=== PATIENT | male | born 1960 | race Two or more races ===

== ENCOUNTER 2017-07-30 14:14 | Emergency (ER) | payer SELFPAY ==
[2017-07-30 14:24] VITALS: BP 140/70; BMI 27.4
--- NOTE | 2017-07-30 14:42 | DR.GENAD ---
HPI - PCP Primary Care Physician: NFD - HPI Comment HPI Comment: PAIN INTERMITTENT AND WORSE TODAY. NO FEVER OR DYSURIA. HAD NORMAL BM TODAY. - Complaint/Symptoms Chief Complaint Doctors Comments: LOWER ABDOMINAL PAIN, LT SCROTAL AND TESTICULAR PAIN TIMES 4 DAYS. Chief Complaint:: "This past Wednesday I was lifting something heavy and I felt something was cutting my from my lower abdomen all the way to my testicles. If I lean forward it hurts way worse. If I get up fast it hurts really bad as well. " Via crinkling machine operator - Ifeanyi Mcallister - Nurses notes reviewed Nurses Notes Review: Yes - Source History Provided: Patient - Mode of Arrival Mode of Arrival: Ambulatory - Timing Onset of Chief Complaint: 07/26/17 Came on: Suddenly - Duration Duration: Constant Duration: Days - Severity Severity: Moderate PMH - PMH Past Medical History: No Past Surgical History: No - Family History History of Family Medical Conditions: No - Social History Does patient currently use any type of tobacco product: No Have you used tobacco products in the last 12 months: No Type of Tobacco Use: None Does any household member use tobacco: No Alcohol Use: None Do you use any recreational Drugs:: No Lives With: Family Lives Where: Home - infectious screening In the last 2 months have you had wt loss of >10#?: NO Have you had fever, night sweats or hemotysis?: No Have you traveled outside the country in the last 6 months?: No Isolation: Standard ROS - Review of Systems Constitutional: No Symptoms Reported Eyes: No Symptoms Reported ENTM: No Symptoms Reported Respiratoy: No Symptoms Reported Cardiovascular: No Symptoms Reported Gastrointestinal/Abdominal: Abdominal Pain, Nausea, Other (PAIN LEFT TESTICLE) Genitourinary: Other (TENDERNESS LT TESTIS, SCRTUM ENLARGE SLIGHTLY.) Neurological: No Symptoms Reported Musculoskeletal: No Symptoms Reported Integumentary: No Symptoms Reported Hematologic/Lymphatic: No Symptoms Reported Endocrine: No Symptoms Reported All Other Systems: Reviewed and Negative PE - Vital Signs Vitals: Temperature 98.7 F Pulse Rate 72 Respiratory Rate 18 Blood Pressure 140/70 O2 Sat by Pulse Oximetry 99 - General Limitations: No Limitations General Appearance: Alert - Head Head Exam: Normal Inspection - Eyes Eye exam: Normal Appearance - ENT ENT Exam: Normal External Ear Exam External Ear Exam: Normal External Inspection TM/Canal Exam: Bilateral Normal Nose Exam: Normal Nose Exam Mouth Exam: Normal Inspection Throat Exam: Normal Inspection - Neck Neck Exam: Normal Inspection - Chest Chest Inspection: Symmetric Chest Wall Rise - Respiratory Respiratory Exam: Normal Lung Sounds Bilat Respiratory Exam: Bilateral Clear to Auscultation - Cardiovascular Cardiovascular Exam: Regular Rate, Normal Rhythm, Normal Heart Sounds - Abdominal Exam Abdominal Exam: Normal Bowel Sounds, Soft, Tenderness Abdominal Tenderness: RLQ, LLQ, Suprapubic - Extremities Extremities Exam: Normal Inspection - Back Back Exam: Normal Inspection - Neurologic Neurological Exam: Alert, Oriented X3 - Psychiatric Psychiatric Exam: Normal Affect, Normal Mood - Skin Skin Exam: Normal Color MDM - Differential Diagnosis Differential Diagnosis: ABDOMINAL PAIN, TESTICULAR PAIN, INGUINAL HERNIA, KIDNEY STONE, UTI, ORCHIT Course - Treatment Treatment: SEE ORDERS. - Education/Counseling Education/Counseling: Patient, Education Educated On: Diagnosis, Needs for Follow Up ROR - Labs Reviewed Laboratory Results Reviewed?: Yes Result Diagrams: 07/30/17 15:06 07/30/17 15:06 Laboratory: WBC 8.7 X10^3/uL (3.6-10.0) 07/30/17 15:06 RBC 5.02 X10^6/uL (4.7-6.0) 07/30/17 15:06 Hgb 14.4 g/dL (13.5-18.0) 07/30/17 15:06 Hct 41.8 % (42.0-54.0) L 07/30/17 15:06 MCV 83.3 fL (80.0-100.0) 07/30/17 15:06 MCH 28.6 pg (27.0-34.0) 07/30/17 15:06 MCHC 34.4 g/dL (33.0-35.0) 07/30/17 15:06 RDW 14.6 % (11.6-16.5) 07/30/17 15:06 Plt Count 259 X10^3/uL (150.0-450.0) 07/30/17 15:06 MPV 8.3 fL (7.4-11.0) 07/30/17 15:06 Neut % 73.1 % (42.0-75.0) 07/30/17 15:06 Lymph % 20.5 % (21.0-51.0) L 07/30/17 15:06 Collin % 5.6 % (0.0-13.0) 07/30/17 15:06 Eos % 0.5 % (0.9-2.9) L 07/30/17 15:06 Baso % 0.3 % (0.2-1.0) 07/30/17 15:06 Neut # 6.4 x10^3/uL (2.2-4.8) H 07/30/17 15:06 Lymph # 1.8 X10^3/uL (1.3-2.9) 07/30/17 15:06 Collin # 0.5 x10^3/uL (0.3-0.8) 07/30/17 15:06 Eos # 0.0 x10^3/uL (0.0-0.2) 07/30/17 15:06 Baso # 0.0 X10^3/uL (0.0-0.1) 07/30/17 15:06 Absolute Nucleated RBC 0.0 /100WBC 07/30/17 15:06 Sodium 139 mmol/L (136-145) 07/30/17 15:06 Corrected Sodium TNP 07/30/17 15:06 Potassium 3.9 mmol/L (3.5-5.1) 07/30/17 15:06 Chloride 105 mmol/L (98-107) 07/30/17 15:06 Carbon Dioxide 26.2 mmol/L (21-32) 07/30/17 15:06 BUN 18 mg/dL (7-18) 07/30/17 15:06 Creatinine 0.91 mg/dL (0.70-1.30) 07/30/17 15:06 Est GFR (MDRD) Af Amer > 60 (>60) 07/30/17 15:06 Est GFR (MDRD) Non-Af > 60 (>60) 07/30/17 15:06 Glucose 90 mg/dL (65-99) 07/30/17 15:06 Calcium 9.1 mg/dL (8.5-10.1) 07/30/17 15:06 Corrected Calcium TNP 07/30/17 15:06 Total Bilirubin 0.50 mg/dL (0.2-1.0) 07/30/17 15:06 AST 23 Units/L (15-37) 07/30/17 15:06 ALT 36 Units/L (12-78) 07/30/17 15:06 Alkaline Phosphatase 98 Units/L (46-116) 07/30/17 15:06 Total Protein 7.8 g/dL (6.4-8.2) 07/30/17 15:06 Albumin 3.8 g/dL (3.4-5.0) 07/30/17 15:06 Globulin 4.0 g/dL (2.5-4.5) 07/30/17 15:06 Albumin/Globulin Ratio 1.0 Ratio (1.1-2.1) L 07/30/17 15:06 Specimen Type Clean catch urine 07/30/17 15:48 Urine Color Yellow (YELLOW) 07/30/17 15:48 Urine Appearance Hazy (CLEAR) 07/30/17 15:48 Urine pH 5.0 (5.0 - 8.0) 07/30/17 15:48 Ur Specific Holladay 1.025 (1.000-1.030) 07/30/17 15:48 Urine Protein 1+ (NEGATIVE) 07/30/17 15:48 Urine Glucose (UA) Negative (NEGATIVE) 07/30/17 15:48 Urine Ketones 2+ (NEGATIVE) 07/30/17 15:48 Urine Occult Blood Negative (NEGATIVE) 07/30/17 15:48 Urine Nitrite Negative (NEGATIVE) 07/30/17 15:48 Urine Bilirubin Negative (NEGATIVE) 07/30/17 15:48 Urine Urobilinogen Normal (NORMAL) 07/30/17 15:48 Ur Leukocyte Esterase 1+ (NEGATIVE) 07/30/17 15:48 Urine RBC 0-2 /HPF (NEGATIVE) 07/30/17 15:48 Urine WBC 0-2 /HPF (NEGATIVE) 07/30/17 15:48 Ur Squamous Epith Cells Negative /HPF (NEGATIVE) 07/30/17 15:48 Urine Bacteria Trace /HPF (NEGATIVE) 07/30/17 15:48 Urine Mucus Few /HPF (NEGATIVE) 07/30/17 15:48 Ur Culture Indicated? No/not indicated 07/30/17 15:48 - XRAY XRAY Interpreted by: Radiologist XRAY Findings: REPORT DISCUSS WITH PATIENT. - Diagnosis Discharge Problem: Testicular/scrotal pain Abdominal pain Qualifiers: Abdominal location: lower abdomen, unspecified Qualified Code(s): R10.30 - Lower abdominal pain, unspecified - Discharge Plan Disposition: HOME, SELF-CARE Condition: Stable Prescriptions: Cyclobenzaprine HCl [FLEXERIL 10 MG *] 10 mg PO TID PRN #20 tab PRN Reason: Ibuprofen [MOTRIN TAB 600 MG *] 600 mg PO TID PRN #20 tab PRN Reason: Pain/Inflammation - Follow ups/Referrals Follow ups/Referrals: NFD,None [Primary Care Provider] - 3 days OLGA NIETO [STAFF PHYSICIAN] - 3 days - Instructions Instructions: Scrotal Swelling, Abdominal Pain, Adult, [id number] Additional Instructions: RETURN TO ED IF WORSE.
[2017-07-30 15:20] LABS: BASOPHILS % (AUTO) 0.3 % (0.2-1.0); EOSINOPHILS % (AUTO) 0.5 % (0.9-2.9); HEMATOCRIT 41.8 % (42.0-54.0); HEMOGLOBIN 14.4 g/dL (13.5-18.0); LYMPHOCYTES # (AUTO) 1.8 X10^3/uL (1.3-2.9); LYMPHOCYTES % (AUTO) 20.5 % (21.0-51.0); MEAN CORPUSCULAR HEMOGLOBIN 28.6 pg (27.0-34.0); MEAN CORPUSCULAR HGB CONC 34.4 g/dL (33.0-35.0); MEAN CORPUSCULAR VOLUME 83.3 fL (80.0-100.0); MEAN PLATELET VOLUME 8.3 fL (7.4-11.0); MONOCYTES # (AUTO) 0.5 x10^3/uL (0.3-0.8); MONOCYTES % (AUTO) 5.6 % (0.0-13.0); NEUTROPHILS # (AUTO) 6.4 x10^3/uL (2.2-4.8); NEUTROPHILS % (AUTO) 73.1 % (42.0-75.0); PLATELET COUNT 259 X10^3/uL (150.0-450.0); RED BLOOD COUNT 5.02 X10^6/uL (4.7-6.0); RED CELL DISTRIBUTION WIDTH 14.6 % (11.6-16.5); WHITE BLOOD COUNT 8.7 X10^3/uL (3.6-10.0)
[2017-07-30 15:37] LABS: ALANINE AMINOTRANSFERASE 36 Units/L (12-78); ALBUMIN 3.8 g/dL (3.4-5.0); ALKALINE PHOSPHATASE 98 Units/L (46-116); ASPARTATE AMINO TRANSFERASE 23 Units/L (15-37); BLOOD UREA NITROGEN 18 mg/dL (7-18); CALCIUM 9.1 mg/dL (8.5-10.1); CARBON DIOXIDE 26.2 mmol/L (21-32); CHLORIDE 105 mmol/L (98-107); CREATININE 0.91 mg/dL (0.70-1.30); SODIUM 139 mmol/L (136-145); TOTAL PROTEIN 7.8 g/dL (6.4-8.2); eGFR BLACK RACES > 60 (>60); eGFR NON BLACK RACES > 60 (>60)
--- NOTE | 2017-07-30 15:41 | US ---
HISTORY: Left testicular pain Study: Scrotal ultrasound Comparison: No priors Technique: Multiple verde scale and Doppler images of the right and left testicles were obtained Findings: The testicles demonstrate normal echotexture. No intra parenchymal mass or infiltrative process can b e identified. Normal color flow Doppler is observed. The right testicle measures 1.4 x 3.0 x 4.0 ce ntimeters. The left testicle measures 1.4 x 3.0 x 3.6 centimeters. The epididymides are unremarkable without mass or cystic lesion. IMPRESSION: 1. Unremarkable evaluation of the testicles. Reported By:
--- NOTE | 2017-07-30 15:57 | CT ---
CT abdomen and pelvis without contrast Indication: Abdominal pain Technique: Helical images through the abdomen and pelvis without contrast. Coronal and sagittal refor mats provided. Findings: Limited images through lower chest shows no acute abnormality. Review of bone windows shows no destructive osseous lesion. Anterolisthesis of L5 on S1 noted with pars defect seen. Abdomen: The liver, gallbladder, spleen, pancreas and adrenal glands are normal. The stomach and smal l bowel are normal. No acute colonic abnormality seen. Few diverticula noted. Appendix is normal. Vas culature shows no significant plaque. The kidneys are normal without hydroureteronephrosis. Pelvis: Urinary bladder rectum are normal. Prostate gland is normal. Impression: No acute abdominal abnormality to explain the patient's pain. Reported By:
[2017-07-30] MEDS ORDERED: TORADOL 60 MG VIAL IM ONE (16:01)
[2017-07-30] MEDS ORDERED: NORFLEX INJ IM ONE (16:01)
[2017-07-30] MEDS ORDERED: TORADOL 60 MG VIAL ONE (16:09)
[2017-07-30] MEDS ORDERED: NORFLEX INJ ONE (16:09)
[2017-07-30 16:11] LABS: BILIRUBIN,URINE NEGATIVE (NEGATIVE); BLOOD/HEMOGLOBIN,URINE NEGATIVE (NEGATIVE); GLUCOSE, URINE NEGATIVE (NEGATIVE); KETONES,URINE 2+ (NEGATIVE); LEUKOCYTE ESTERASE ,URINE 1+ (NEGATIVE); NITRITES,URINE NEGATIVE (NEGATIVE); PROTEIN,URINE 1+ (NEGATIVE); UROBILINOGEN,URINE NORMAL (NORMAL)
[2017-07-30 16:18] LABS: APPEARANCE,URINE HAZY (CLEAR); BACTERIA,URINE TRACE /HPF (NEGATIVE); COLOR,URINE YELLOW (YELLOW); MUCUS,URINE FEW /HPF (NEGATIVE); RBC,URINE 0-2 /HPF (NEGATIVE); SQUAMOUS EPITHELIAL CELL,UR NEGATIVE /HPF (NEGATIVE)
== END 2017-07-30 16:36 | disposition home or self-care (01) ==
LOC: ER 14:29
DX: N50.82 Scrotal pain (principal); R10.31 Right lower quadrant pain
CPT/HCPCS: 36415; 74176; 76870; 80053; 81001; 85025; 96372; 99283; J1885; J2360